=== PATIENT | male | born 1985 ===

== ENCOUNTER 2017-08-11 01:10 | Emergency (ER) | payer SELFPAY ==
[2017-08-11 01:31] VITALS: RESP 14
--- NOTE | 2017-08-11 01:54 | C.PDOC ---
History Of Present Illness 31 years old male presents to ED with complaints of feeling anxious that began July 25, 2017. Associated symptoms include SOB, heart racing, and numbness of hands and feet. Pt states he sleeps 5 to 6 hours a night. Admits to smoking marijuana and taking xanax for relief. Denies chest pain or hearing voices. Chief Complaint (Nursing): Anxiety History Per: Patient History/Exam Limitations: no limitations Onset/Duration Of Symptoms: Hrs Current Symptoms Are (Timing): Still Present Suicide/Self Injury Attempted (Context): None Modifying Factor(s): Marijuana Associated Symptoms: Anxiety. denies: Anger, Suicidal Thoughts Involuntary Hold By: None Recent travel outside of the [place]: No Past Medical History Reviewed: Historical Data, Nursing Documentation, Vital Signs Vital Signs: Last Vital Signs Temp 97.8 F 08/11/17 03:42 Pulse 70 08/11/17 03:42 Resp 14 08/11/17 03:42 BP 110/70 08/11/17 03:42 Pulse Ox 98 08/11/17 03:42 - Medical History PMH: No Chronic Diseases Surgical History: No Surg Hx Family History: States: No Known Family Hx - Social History Hx Alcohol Use: Yes Hx Substance Use: Yes - Immunization History Hx Tetanus Toxoid Vaccination: No Hx Influenza Vaccination: No Hx Pneumococcal Vaccination: No Review Of Systems Constitutional: Negative for: Fever Cardiovascular: Positive for: Palpitations. Negative for: Chest Pain Respiratory: Positive for: Shortness of Breath. Negative for: Cough Gastrointestinal: Negative for: Nausea, Vomiting, Abdominal Pain, Diarrhea Neurological: Positive for: Numbness (hands and feet). Negative for: Weakness, Change in Speech, Confusion, Altered Mental Status, Headache Psych: Positive for: Anxiety. Negative for: Suicidal ideation Physical Exam - Physical Exam Appears: Well, Non-toxic, No Acute Distress Skin: Normal Color, Warm, Dry Head: Atraumatic, Normacephalic Eye(s): bilateral: Other (Mid sized pupils) Oral Mucosa: Moist Neck: Supple Chest: Symmetrical, No Tenderness Cardiovascular: Rhythm Regular Respiratory: Normal Breath Sounds, No Decreased Breath Sounds, No Rales, No Rhonchi, No Wheezing Gastrointestinal/Abdominal: Soft, No Tenderness, No Distention, No Guarding, No Rebound Extremity: Normal ROM, No Tenderness, No Swelling Extremity: Bilateral: Normal Color And Temperature, Normal ROM Pulses: Left Radial: Normal, Right Radial: Normal Neurological/Psych: Oriented x3, Normal Speech, Normal Cognition, Other (no tremor or focal deficits) ED Course And Treatment - Laboratory Results Result Diagrams: 08/11/17 02:01 08/11/17 02:01 O2 Sat by Pulse Oximetry: 100 (RA) Pulse Ox Interpretation: Normal Medical Decision Making Medical Decision Making: Ordered EKG, drug screening, blood work, and urinalysis. Administered Xanax. Crisis notified. Disposition - Disposition Referrals: [facility] [Outside] Disposition: HOME/ ROUTINE Disposition Time: 04:00 Condition: GOOD Prescriptions: Alprazolam [Xanax] 0.25 mg PO TID #15 tablet Instructions: Anxiety (ED) Forms: [facility] (Trinidadian) Print Language: ROMANSH - Clinical Impression Clinical Impression: Anxiety - Scribe Statement The provider has reviewed the documentation as recorded by the Scribe Taurus Abad All medical record entries made by the Scribe were at my direction and personally dictated by me. I have reviewed the chart and agree that the record accurately reflects my personal performance of the history, physical exam, medical decision making, and the department course for this patient. I have also personally directed, reviewed, and agree with the discharge instructions and disposition.
[2017-08-11 02:04] LABS: BASO # 0.1 K/uL (0.0-0.2); BASO % 1.1 % (0.0-2.0); EOS # 0.1 K/uL (0.0-0.7); LYMPH # 2.5 K/uL (1.0-4.3); LYMPH % 25.7 % (20.0-40.0); MEAN CELL VOLUME 80.6 fL (80.0-94.0); MEAN CORPUSCULAR HEMOGLOBIN 26.4 pg (27.0-31.0); MEAN CORPUSCULAR HGB CONC 32.7 g/dL (33.0-37.0); MEAN PLATELET VOLUME 8.7 fL (7.2-11.7); MONO # 1.1 K/uL (0.0-0.8); MONO % 11.1 % (0.0-10.0); NEUT # 5.9 K/uL (1.8-7.0); NEUT % 61.1 % (50.0-75.0); RBC 4.93 Mil/uL (4.40-5.90); RED CELL DISTRIBUTION WIDTH 13.3 % (11.5-14.5); WHITE BLOOD COUNT 9.7 K/uL (4.8-10.8)
--- NOTE | 2017-08-11 02:08 | C.PDOC ---
Chief Complaint (Nursing): Anxiety Past Medical History Vital Signs: Last Vital Signs Temp 98.6 F 08/11/17 01:25 Pulse 74 08/11/17 01:25 Resp 14 08/11/17 01:25 BP 120/75 08/11/17 01:25 Pulse Ox 100 08/11/17 01:25 - Social History Hx Alcohol Use: Yes Hx Substance Use: Yes - Immunization History Hx Tetanus Toxoid Vaccination: No Hx Influenza Vaccination: No Hx Pneumococcal Vaccination: No ED Course And Treatment O2 Sat by Pulse Oximetry: 100 Disposition - Disposition
[2017-08-11 02:22] LABS: ALB/GLOB RATIO 1.3 (1.0-2.1); ALBUMIN 4.1 g/dL (3.5-5.0); ALT/SGPT 24 U/L (21-72); AST/SGOT 19 U/L (17-59); BLOOD UREA NITROGEN 16 mg/dL (9-20); CALCIUM 8.2 mg/dl (8.6-10.4); GFR AFRICAN-AMERICAN > 60; GFR NON-AFRICAN AMERICAN > 60
[2017-08-11 03:44] VITALS: BP 110/70; PULSE 70; TEMP 97.8
[2017-08-11 04:01] VITALS: O2SAT 100
--- NOTE | 2017-08-12 22:00 | CARD ---
APPROVED REPORT EKG Measurement Heart [id number] <Conclusion> Normal sinus rhythm Normal ECG
== END 2017-08-11 03:44 | disposition home or self-care (01) ==
LOC: C.ER 01:10
DX: F41.9 Anxiety disorder, unspecified (principal)
CPT/HCPCS: 80053; 85025; 93005; 99283; G0480

== ENCOUNTER 2018-02-17 14:05 | Emergency (ER) | payer OTHER ==
[2018-02-17 14:25] VITALS: BP 115/73; PULSE 60; RESP 18; TEMP 99.1; O2SAT 97
--- NOTE | 2018-02-17 14:40 | C.PDOC ---
History Of Present Illness 32 y/o male presents to ED for suture removal on right chin and right scalp put on 02/10/18. Patient denies fever, drainage or any other physical complaints at this time. Time Seen by Provider: 02/17/18 14:25 Chief Complaint (Nursing): Wound Check History Per: Patient History/Exam Limitations: no limitations Onset/Duration Of Symptoms: Days Ago Current Symptoms Are (Timing): Better Past Medical History Reviewed: Historical Data, Nursing Documentation, Vital Signs Vital Signs: Last Vital Signs Temp 99.1 F 02/17/18 14:22 Pulse 60 02/17/18 14:22 Resp 18 02/17/18 14:22 BP 115/73 02/17/18 14:22 Pulse Ox 97 02/17/18 14:55 - Medical History PMH: Anxiety Surgical History: No Surg Hx Family History: States: No Known Family Hx - Social History Hx Alcohol Use: Yes Hx Substance Use: No - Immunization History Hx Tetanus Toxoid Vaccination: Yes Hx Influenza Vaccination: No Hx Pneumococcal Vaccination: No Review Of Systems Constitutional: Negative for: Fever, Chills Skin: Positive for: Other (suture removal on chin and scalp area). Negative for : Rash, Bruising Physical Exam - Physical Exam Appears: Non-toxic, No Acute Distress Skin: Warm, Dry, Other (3 sutures on right chin. no erythema or drainage noted. ) Head: Normacephalic, No Swelling, Other (3 sutures to right scalp area. well healed. No erythema or drainage) Eye(s): bilateral: PERRL, EOMI Oral Mucosa: Moist Extremity: Normal ROM, Capillary Refill (<2 seconds), No Deformity Neurological/Psych: Oriented x3, Normal Speech, Normal Cognition Gait: Steady ED Course And Treatment O2 Sat by Pulse Oximetry: 97 (RA) Pulse Ox Interpretation: Normal Progress Note: Sutures removed, patient tolerated procedure well with no complications. Patient discharged and advised f.u in 1-2 days with PMD Disposition Counseled Patient/Family Regarding: Diagnosis, Need For Followup - Disposition Referrals: [facility] [Outside] Disposition: HOME/ ROUTINE Disposition Time: 14:39 Condition: STABLE Instructions: Stitches Removal Forms: [facility] (Spanish), Gen Discharge Inst Divehi - Clinical Impression Clinical Impression: Encounter for removal of sutures - PA / [employer] / Resident Statement MD/DO has reviewed & agrees with the documentation as recorded. - Scribe Statement The provider has reviewed the documentation as recorded by the Chrisibalvino Mendoza All medical record entries made by the Josette were at my direction and personally dictated by me. I have reviewed the chart and agree that the record accurately reflects my personal performance of the history, physical exam, medical decision making, and the department course for this patient. I have also personally directed, reviewed, and agree with the discharge instructions and disposition.
== END 2018-02-17 14:56 | disposition home or self-care (01) ==
LOC: MERGE 14:05 → C.ER 14:05
DX: Z48.02 Encounter for removal of sutures (principal)

== ENCOUNTER 2018-04-14 15:01 | Emergency (ER) | payer OTHER ==
[2018-04-14 15:23] VITALS: BP 125/84; PULSE 62; RESP 18; TEMP 99; O2SAT 97
--- NOTE | 2018-04-14 16:23 | RAD ---
Date of service: 04/14/2018 PROCEDURE: Left Foot Radiographs. HISTORY: injury 1 month ago, pain, COMPARISON: None. FINDINGS: BONES: There is a nondisplaced fracture base of the metatarsal with a very small amount of callus identified. There is no other fracture identified. JOINTS: Normal. SOFT TISSUES: Normal. OTHER FINDINGS: None. IMPRESSION: Healing fracture base of 5th metatarsal.
--- NOTE | 2018-04-14 16:56 | C.PDOC ---
History Of Present Illness 32 year old male presents to ED for evaluation of worsening left foot pain s/o injury 1 month ago. Patient states he injured his foot while running, suspected he sprained his foot, treated with ice and elevation with no improvement. Ambulates with pain. Denies numbness, tingling, fever, nausea, vomiting, and other associated symptoms. Time Seen by Provider: 04/14/18 15:29 Chief Complaint (Nursing): Lower Extremity Problem/Injury History Per: Patient History/Exam Limitations: no limitations Onset/Duration Of Symptoms: Days Current Symptoms Are (Timing): Still Present Past Medical History Reviewed: Historical Data, Nursing Documentation, Vital Signs Vital Signs: Last Vital Signs Temp 99 F 04/14/18 15:20 Pulse 62 04/14/18 15:20 Resp 18 04/14/18 15:20 BP 125/84 04/14/18 15:20 Pulse Ox 97 04/14/18 20:32 - Medical History PMH: Anxiety Denies: Chronic Kidney Disease Family History: States: Unknown Family Hx - Social History Hx Alcohol Use: Yes Hx Substance Use: Yes - Immunization History Hx Tetanus Toxoid Vaccination: No Hx Influenza Vaccination: No Hx Pneumococcal Vaccination: No Review Of Systems Except As Marked, All Systems Reviewed And Found Negative. Constitutional: Negative for: Fever, Chills Gastrointestinal: Negative for: Nausea, Vomiting Neurological: Negative for: Weakness, Numbness, Incoordination Physical Exam - Physical Exam Appears: Non-toxic, No Acute Distress Skin: Normal Color, Warm, Dry Head: Atraumatic, Normacephalic Oral Mucosa: Moist Extremity: Normal ROM, Tenderness (tenderness to the lateral left foot along the 5th metatarsal), Capillary Refill (less than 2 seconds), No Deformity Pulses: Left Dorsalis Pedis: Normal, Right Dorsalis Pedis: Normal Neurological/Psych: Oriented x3, Normal Speech, Normal Motor, Normal Sensation Gait: Steady ED Course And Treatment O2 Sat by Pulse Oximetry: 97 (RA) Pulse Ox Interpretation: Normal - Radiology CXR: Viewed By Me - Other Rad Right Ankle X-Ray: Viewed By Me, Read By Radiologist Interpretation: FINDINGS: BONES: No acute displaced fracture. JOINTS: No dislocation. SOFT TISSUES: Extensive soft tissue swelling. No evidence of radiopaque foreign body. OTHER FINDINGS: None. IMPRESSION: Extensive soft tissue swelling. No acute displaced fracture, dislocation, or significant joint effusion identified. If symptoms persist or if there is clinical concern , x-ray follow-up in 7-10 days should be considered. Medical Decision Making Medical Decision Making: Plan: --Right ankle X-ray Progress/Update: X-rays viewed by attending ED, Dr. Pool and me. Patient stable for discharge home. Patient was placed in a posterior splint by ED battery technician, checked by me and given crutches. Disposition - Disposition Referrals: [facility] [Outside] Delma Dent DPM [Staff Provider] - Disposition: HOME/ ROUTINE Disposition Time: 17:00 Condition: GOOD Additional Instructions: Follow up with the [facility] In[facility] within 1-2 days. Return if worsened. Instructions: Foot Fracture (DC) Forms: [employer] (Divehi) - Clinical Impression Clinical Impression: Foot fracture - PA / [employer] / Resident Statement MD/DO has reviewed & agrees with the documentation as recorded. - Scribe Statement The provider has reviewed the documentation as recorded by the Scribe (Bisi Kaye) All medical record entries made by the Scribe were at my direction and personally dictated by me. I have reviewed the chart and agree that the record accurately reflects my personal performance of the history, physical exam, medical decision making, and the department course for this patient. I have also personally directed, reviewed, and agree with the discharge instructions and disposition.
== END 2018-04-14 17:08 | disposition home or self-care (01) ==
LOC: C.ER 15:01
DX: S92.352A Displaced fracture of fifth metatarsal bone, left foot, initial encounter for closed fracture (principal); X58.XXXA Exposure to other specified factors, initial encounter; Y93.02 Activity, running

== ENCOUNTER 2018-04-28 08:27 | Day surgery (SDC) | payer OTHER ==
[2018-04-24 08:49] VITALS: BMI 30.7
[2018-04-28] MEDS ORDERED: Propofol 10 mg/ml Inj (20 ML) ONE ×2 (14:15→14:54)
[2018-04-28] MEDS ORDERED: Midazolam 2 MG/2 ML VIAL ONE ×2 (14:15→14:59)
[2018-04-28] MEDS ORDERED: ceFAZolin 1 gm FROZEN Premix 1 GM/50 ML ML IVPB ONE (14:21)
[2018-04-28] MEDS ORDERED: Lidocaine Hydrochloride 10 ML INJ ONE (14:38)
[2018-04-28] MEDS ORDERED: ceFAZolin IV 1 gm in Dextrose 1 GM/50 ML BAG IVPB ONE (15:05)
[2018-04-28] MEDS: Bupivacaine 0.25% 20 ML INJ IJ ONE ×2 (15:13→15:50)
[2018-04-28] MEDS ORDERED: HYDROmorphone 0.5 mg/0.5 ml ISec IVP PRN (15:50)
[2018-04-28] MEDS ORDERED: Lactated Ringer's 1,000 ML IV ONE (16:13)
[2018-04-28] MEDS ORDERED: Oxycodone/Acetaminophen 5/325 mg Tab PO PRN ×2 (16:13)
--- NOTE | 2018-04-28 16:17 | PCM.SURG1 ---
Surgeon's Initial Post Op Note - Surgeon's Notes Surgeon: Dr. Dent, DPM Rug Cutter: Dr. Tay Morales PGY-3, Dr. Justin Mancuso PGY-3, Dr. David Grimaldo PGY-3 Type of Anesthesia: MAC, Local Anesthesia Administered By: Dr. 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
[2018-04-28 17:39] VITALS: BP 125/80; PULSE 50; RESP 16; TEMP 97.7; O2SAT 100
--- NOTE | 2018-04-30 01:34 | OP ---
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 PROCEDURE: Open reduction with internal fixation of fifth metatarsal Winn fracture, left foot. SURGEON: Delma Dent DPM ASSISTANTS: Sheila Morales DPM, PGY-3; Nadia Mancuso DPM, PGY-3; Aminta Grimaldo DPM, PGY-3. ANESTHESIOLOGIST: Kip Mar DO ANESTHESIA: MAC IV sedation with local injection. INDICATIONS: The patient is a 32-year-old male with the above-mentioned diagnosis. Of note, the patient did suffer an injury to his left foot approximately one month ago. The patient has been seen in followup by Dr. Dent in the [facility] in which the patient continues to have pain to the fifth metatarsal area. The patient required a surgical intervention at this time. All risks, benefits, and possible complications to the proposed procedure have been explained to the patient at length. The patient verbalized understanding and wishes to proceed. All questions were answered. No guarantees were given nor implied. Consent was signed and n.p.o. was confirmed prior to moving the patient into the operating room. OPERATIVE PROCEDURE: The patient was brought into the operating room and placed on the operating room table in a supine position. A well-padded pneumatic ankle tourniquet was applied in a supramalleolar position to the patient's left ankle. Once IV sedation was achieved, a local injection consisting of a 1:1 mixture of 20 mL of 0.25% Marcaine plain with 2% lidocaine plain was introduced in a local block fashion in the patient's left foot. First, local anesthesia was achieved. The foot was then prepped and draped in the usual sterile manner and procedure was begun. PROCEDURE: Open reduction with internal fixation of fifth metatarsal Winn fracture, left foot: Our attention was now directed to the lateral aspect of the patient's left foot where our anatomical landmarks of the styloid process and the lateral shaft of the fifth metatarsal was identified. Using intraoperative fluoroscopy, the fracture site was identified approximately 1.5 cm distal to the styloid process. Next, using a #15 blade, an approximately 6 cm linear longitudinal incision was made over the lateral aspect of the fifth metatarsal of the left foot. Care was taken to avoid all vital neurovascular structures, all bleeders were cauterized as necessary. Combination of sharp and blunt tissue dissection was utilized in order to visualize the periosteum of the fifth metatarsal. Next, a fresh #15 blade was utilized to create a linear incision directly over the fifth metatarsal through the periosteal layer. A Marie elevator was now utilized to reflect the periosteum medially and laterally, thus exposing the fracture site of the fifth metatarsal into view. Our attention was now directed to the fracture site that was identified. There did appear to be some fibrocallus formation to the fracture site and the fracture site did appear to be mobile on examination with an osteotome. Next, utilizing a combination of an osteotome and a sagittal saw blade, the edges of the fracture fragment, both distally and proximally, were freshened with healthy bleeding achieved from both ends of the fracture site. Next, a 1.25 K-wire was utilized to drill across the fracture site both proximally and distally in order to allow for more healthy bleeding. Next, the surgical site was washed with copious amounts of normal saline solution to remove any debris from the surgical site. Next, utilizing a bone reduction clamp, the fifth metatarsal was reduced into anatomic alignment which was confirmed using intraoperative fluoroscopy. At this time, two 1.25 K-wires were utilized one proximally and one distally through a Synthes five-hole 2.4 mm LCP plate. Positioning of the plate was then confirmed using intraoperative fluoroscopy until the desired location of the plate was achieved. Thus, utilizing standard AO principles and techniques, a 2.4 x 40 mm cortical screw x2, a 2.4 x 60 mm cortical screw, and a 2.4 x 80 mm cortical screw were inserted in their position, 2 screws placed distally and 2 screws placed proximally bending the fracture site. Again, intraoperative fluoroscopy was utilized to confirm anatomic reduction of the fracture at this time. The surgical site was then flushed with copious amounts of normal sterile saline solution. Next, the deep subcutaneous and periosteal layers were reapproximated using 2-0 Vicryl. The subcutaneous tissue was reapproximated using 3-0 Vicryl and the skin edges were reapproximated using 4-0 nylon suture. Postoperative injections included additional 10 mL of 0.25% Marcaine plain to the incision site. Postoperative bandages included Betadine-soaked Adaptic, 4x4 gauze, Waleska Murry, a well-padded posterior splint was applied to the patient's left lower extremity. POSTOPERATIVE CONDITION: The patient tolerated the procedure and anesthesia well with no apparent complications or complaints. The patient was escorted from the OR to the recovery room with vital signs stable, and neurovascular status intact. The patient will follow up with Dr. Dent in the [facility] within 1 week, he will be nonweightbearing at this time with a splint and crutches. Sheila Morales DPM Delma Dent DPM JERARDO
== END 2018-04-28 17:55 | disposition home or self-care (01) ==
LOC: C.SDS 08:27
PROVIDERS: ATTEND Podiatrist Foot & Ankle Surgery
DX: S92.352A Displaced fracture of fifth metatarsal bone, left foot, initial encounter for closed fracture (principal); X58.XXXA Exposure to other specified factors, initial encounter
CPT/HCPCS: 28485; C1713; J0690; J2250; J2704; J3010; J7120